=== PATIENT | male | born 1960 | race Caucasian/White ===

== ENCOUNTER → 2020-05-28 | Outpatient (CLI) | payer OTHER ==
--- NOTE | 2020-05-28 12:56 | MR ---
EXAMINATION TYPE: MR lumbar spine wo con DATE OF EXAM: 05/28/2020 COMPARISON: NONE HISTORY: Low back pain per order. Lower back pain for 28 years into right buttocks per patient. TECHNIQUE: Multiplanar, multisequence imaging of the lumbar spine is performed without IV contrast. FINDINGS: Survey images show dextroconvex scoliosis or curvature centered at L3 level. Sagittal image s of the lumbar spine show vertebral body heights to appear satisfactory. There is grade 1 retrolisth esis L3 on L4 and to lesser degree L4 and L5. Multilevel disc desiccation and disc space narrowing. D isc space narrowing fairly moderate throughout greatest at L3-L4 level. Heterogeneous Modic type II e ndplate changes with moderate anterior spurring L2-L3 and L3-L4 levels. The conus medullaris is norm al in position and signal ending mid L1 level. Axial images at T12-L1 level are within normal limits. Axial images at L1-L2 level show mild broad disc bulge minimally effacing the anterior thecal sac and mild facet arthropathy bilaterally. Axial images at L2-L3 level show moderate broad disc bulge and mild facet degenerative changes bilate rally. There is effacement of the anterior thecal sac. There is left foraminal disc protrusion compon ent causing mild left greater than right bilateral anterior inferior neural foraminal narrowing. Axial images at L3-L4 levels with spondylolisthesis with moderate to advanced broad disc bulge, there is right foraminal disc protrusion component effacing the right lateral recess axial image 13. There is some effacement of the anterior thecal sac extending to right of midline. There is mild right gre ater than left bilateral anterior inferior neural foraminal narrowing. Mild/moderate facet arthropath y bilaterally. Axial images at L4-L5 level show [id number] facet degenerative changes bilaterally. There is mi ld to moderate broad-based posterior disc protrusion. Spinal canal preserved. There is moderate left and mild to moderate right-sided neural foraminal narrowing at this level. Axial images at L5-S1 level shows moderate facet degenerative changes bilaterally. There is broad-bas ed posterior central disc protrusion without spinal canal is preserved. Mild right greater than left bilateral anterior inferior neural foraminal narrowing is present. The paraspinal muscle bulk is maintained. IMPRESSION: Multilevel spondylolisthesis and degenerative changes as detailed above. If outside x-ray becomes available for comparison an addendum may be issued.
== END | disposition home or self-care (01) ==
LOC: RADMRIMAIN 08:19
DX: M43.16 Spondylolisthesis, lumbar region (principal); M47.816 Spondylosis without myelopathy or radiculopathy, lumbar region
CPT/HCPCS: 72148

== ENCOUNTER 2021-02-20 08:14 | Inpatient (IN) | payer OTHER ==
[2021-02-20] MEDS ORDERED: SODIUM CHLORIDE 0.9% 1,000 ML IV STA (08:25)
[2021-02-20 09:44] LABS: ALT 22 U/L (4-49); AST 59 U/L (17-59); African American GFR (CKD) >90 (>60 ml/min/1.73 sqM); Albumin 2.9 g/dL (3.5-5.0); Alkaline Phosphatase 111 U/L (38-126); Amylase 46 U/L (30-110); Anion Gap 3 mmol/L; Blood Urea Nitrogen 4 mg/dL (9-20); Calcium 8.2 mg/dL (8.4-10.2); Carbon Dioxide 36 mmol/L (22-30); Chloride 96 mmol/L (98-107); Glucose 102 mg/dL (74-99); Lipase 74 U/L (23-300); Non-African American GFR(CKD) >90 (>60 ml/min/1.73 sqM); Sodium 135 mmol/L (137-145); Total Bilirubin 1.1 mg/dL (0.2-1.3); Total Protein 5.6 g/dL (6.3-8.2)
[2021-02-20 09:47] LABS: Basophils % (A) 1 %; Eosinophils # (A) 0.1 k/uL (0-0.7); Eosinophils % (A) 1 %; HCT 38.6 % (39.0-53.0); HGB 14.2 gm/dL (13.0-17.5); Hyperchromasia Slight; Lymphocytes # (A) 1.6 k/uL (1.0-4.8); Lymphocytes % (A) 26 %; MCH 39.1 pg (25.0-35.0); MCHC 36.9 g/dL (31.0-37.0); Macrocytosis Slight; Mean Platelet Volume 7.1; Monocytes # (A) 0.4 k/uL (0-1.0); Monocytes % (A) 6 %; Neutrophils # (A) 4.1 k/uL (1.3-7.7); Neutrophils % (A) 65 %; Platelet Count 256 k/uL (150-450); RBC 3.65 m/uL (4.30-5.90); RDW 12.9 % (11.5-15.5); WBC 6.3 k/uL (3.8-10.6)
--- NOTE | 2021-02-20 09:54 | XR ---
KUB HISTORY: Abdominal pain KUB submitted on 2 images, no comparisons There is a dextroscoliosis centered at the upper lumbar spine. Multilevel spondylosis is present. Kitty g bases are clear. No evidence of pneumoperitoneum or bowel obstruction. Possible phleboliths noted i n the pelvis. IMPRESSION: Nonspecific bowel gas pattern. Scoliosis and degenerative disc disease.
[2021-02-20 09:57] LABS: Potassium 2.6 mmol/L (3.5-5.1)
[2021-02-20] MEDS ORDERED: POTASSIUM CHLORIDE ER 20 MEQ TAB.ER PO STA ×2 (09:57→19:51)
[2021-02-20 10:18] LABS: Appearance,Urine Clear (Clear); Bilirubin,Urine Negative (Negative); Blood,Urine Negative (Negative); Color,Urine Yellow; Glucose,Urine (UA) Negative (Negative); Ketones,Urine Negative (Negative); Leukocyte Esterase,Urine Negative (Negative); Nitrite,Urine Negative (Negative); Protein,Urine Negative (Negative); Specific Gravity,Urine 1.013 (1.001-1.035)
--- NOTE | 2021-02-20 10:18 | ED ---
Recheck HPI - General Chief Complaint: Recheck/Abnormal Lab/Rx Stated Complaint: Abnormal Labs Time Seen by Provider: 02/20/21 08:25 Source: patient, family, RN notes reviewed Mode of arrival: ambulatory Limitations: no limitations - History of Present Illness Initial Comments: Patient is a 60-year-old male that presents to emergency department complaining of abnormal labs at last blood draw at the [facility]. He notes that he's also been having diarrhea on and off for the last 2 years with no change. He notes that his doctor told to take half a pneumonia In the morning. He notes that this has not helped. He notes that his labs showed a low potassium and he was told to come the emergency room. Patient denied any other issues or complaints. He was otherwise well-appearing. He denied chest pain short of breath headache nausea vomiting diarrhea constipation fever fatigue chills. - Related Data Allergies Allergy/AdvReac Type Severity Reaction Status Date / Time No Known Allergies Allergy Verified 02/20/21 08:21 Review of Systems ROS Statement: Those systems with pertinent positive or pertinent negative responses have been documented in the HPI. ROS Other: All systems not noted in ROS Statement are negative. Past Medical History Past Medical History: Musculoskeletal Disorder, Thyroid Disorder History of Any Multi-Drug Resistant Organisms: None Reported Past Surgical History: Appendectomy, Hernia Repair Past Psychological History: No Psychological Hx Reported Smoking Status: Current every day smoker Past Alcohol Use History: Daily Past Drug Use History: None Reported General Exam Limitations: no limitations General appearance: alert, in no apparent distress Head exam: Present: atraumatic, normocephalic, normal inspection Eye exam: Present: normal appearance, PERRL, EOMI. Absent: scleral icterus, con junctival injection, periorbital swelling ENT exam: Present: normal exam, mucous membranes moist Neck exam: Present: normal inspection Respiratory exam: Present: normal lung sounds bilaterally. Absent: respiratory distress, wheezes, rales, rhonchi, stridor Cardiovascular Exam: Present: regular rate, normal rhythm, normal heart sounds. Absent: systolic murmur, diastolic murmur, rubs, gallop, clicks GI/Abdominal exam: Present: soft, tenderness (bilateral lower abdomen.), normal bowel sounds. Absent: distended, guarding, rebound, rigid Extremities exam: Present: normal inspection, full ROM, normal capillary refill. Absent: tenderness, pedal edema, joint swelling, calf tenderness Neurological exam: Present: alert, oriented X3 Psychiatric exam: Present: normal affect, normal mood Skin exam: Present: warm, dry, intact, normal color. Absent: rash Course Vital Signs 02/20/21 02/20/21 02/20/21 08:15 09:30 10:00 Temperature 97.7 F Pulse Rate 64 58 L 65 Respiratory 18 22 16 Rate Blood Pressure 142/81 145/83 141/82 O2 Sat by Pulse 98 99 99 Oximetry Medical Decision Making - Medical Decision Making 60-year-old male with 3 year history of diarrhea and low potassium on recent blood work. Labs, 1 L normal saline, KUB, EKG, cargo service supervisor ordered. Labs: CBC unremarkable, CMP shows potassium of 2.6 chloride of 96 calcium of 8.2 and albumin of 2.9. KUB shows nonspecific bowel gas pattern. 40 mEq of potassium ordered. Patient has no previous labs or EKGs to compare to. Dr. Sethi was consulted and recommended patient be inpatient. Case discussed with Dr. Lemus, patient will be admitted. - Lab Data Result diagrams: 02/20/21 08:55 02/20/21 08:55 Lab Results 02/20/21 02/20/21 02/20/21 Range/Units 08:55 08:55 09:36 WBC 6.3 (3.8-10.6) k/uL RBC 3.65 L (4.30-5.90) m/uL Hgb 14.2 (13.0-17.5) gm/dL Hct 38.6 L (39.0-53.0) % MCV 106.0 H (80.0-100.0) fL MCH 39.1 H (25.0-35.0) pg MCHC 36.9 (31.0-37.0) g/dL RDW 12.9 (11.5-15.5) % Plt Count 256 (150-450) k/uL MPV 7.1 Neutrophils % 65 % Lymphocytes % 26 % Monocytes % 6 % Eosinophils % 1 % Basophils % 1 % Neutrophils # 4.1 (1.3-7.7) k/uL Lymphocytes # 1.6 (1.0-4.8) k/uL Monocytes # 0.4 (0-1.0) k/uL Eosinophils # 0.1 (0-0.7) k/uL Basophils # 0.0 (0-0.2) k/uL Hyperchromasia Slight Macrocytosis Slight Sodium 135 L (137-145) mmol/L Potassium 2.6 L* (3.5-5.1) mmol/L Chloride 96 L (98-107) mmol/L Carbon Dioxide 36 H (22-30) mmol/L Anion Gap 3 mmol/L BUN 4 L (9-20) mg/dL Creatinine 0.66 (0.66-1.25) mg/dL Est GFR (CKD-EPI)AfAm >90 (>60 ml/min/1.73 sqM) Est GFR (CKD-EPI)NonAf >90 (>60 ml/min/1.73 sqM) Glucose 102 H (74-99) mg/dL Calcium 8.2 L (8.4-10.2) mg/dL Total Bilirubin 1.1 (0.2-1.3) mg/dL AST 59 (17-59) U/L ALT 22 (4-49) U/L Alkaline Phosphatase 111 (38-126) U/L Total Protein 5.6 L (6.3-8.2) g/dL Albumin 2.9 L (3.5-5.0) g/dL Amylase 46 (30-110) U/L Lipase 74 (23-300) U/L Urine Color Yellow Urine Appearance Clear (Clear) Urine pH 6.0 (5.0-8.0) Ur Specific [place] 1.013 (1.001-1.035) Urine Protein Negative (Negative) Urine Glucose (UA) Negative (Negative) Urine Ketones Negative (Negative) Urine Blood Negative (Negative) Urine Nitrite Negative (Negative) Urine Bilirubin Negative (Negative) Urine Urobilinogen 2.0 (<2.0) mg/dL Ur Leukocyte Esterase Negative (Negative) - EKG Data -: EKG Interpreted by [place] EKG shows normal: sinus rhythm Rate: normal EKG Comments: Ventricular rate 61 bpm, MS interval 130 ms, QRS duration 92 ms, QTC 477 ms, PRT axes 73/74/55, sinus rhythm with premature atrial complexes, incomplete right bundle branch block, nonspecific ST and T-wave abnormality, abnormal ECG. - Radiology Data Radiology results: report reviewed, image reviewed KUB: Nonspecific bowel gas pattern. Scoliosis and degenerative disc disease. Disposition Clinical Impression: Hypokalemia, Diarrhea Disposition: ADMITTED IP TO THIS HOSP Condition: Stable Is patient prescribed a controlled substance at d/c from ED?: No Referrals: [facility],Clinic [Primary Care Provider] - 1-2 days Time of Disposition: 10:31
[2021-02-20] MEDS ORDERED: NALOXONE 0.4 MG/ML 1 ML VIAL IV PRN (10:32)
[2021-02-20] MEDS ORDERED: Potassium Replacement Protocol 1 EACH MISC MISCELLANE PRN (10:39)
[2021-02-20] MEDS ORDERED: Magnesium Replacement Protocol 1 EACH MISC MISCELLANE PRN (10:39)
[2021-02-20] MEDS ORDERED: IOPAMIDOL CONTRAST (ORAL USE) VIAL PO PRN (10:42)
--- NOTE | 2021-02-20 11:21 | P.HPIM ---
History of Present Illness This is a pleasant 60 years old male with past medical history of chronic diarrhea. He was sent from the [place] office for abnormal lab with hypokalemia. Patient went to the [place] hospital for testing for his thyroid blood test for a ro utine visit, he was found to have low potassium and call to come to emergency room. Patient has been complaining of from diarrhea for 2 years and is really bad slowly getting worse over the last year, currently he is going to 16-18 times per day, associated with lower abdominal pain about 6-8/10 in severity. Nonradiating. It felt like cramps. No nausea vomiting. He has been evaluated by GI service over the last 2 years. He had a colonoscopy about 2 years ago. He denies chest pain or dyspnea. No headache or weakness. At baseline he works using a cane. He has family history of pancolitis and his daughter who is: Has to be taken out per patient. He is a smoker about 1 pack per day, patient is counseled and does not want to quit agrees to nicotine patch while in house. He drinks about 6-8 red apple cider of alcohol every day. No illicit drugs. Patient is hemodynamically stable. Afebrile. Labs showing unremarkable CBC with normal WBC at 6.3. Sodium 135, potassium 2.6. Creatinine normal at 0.6. Liver enzymes not elevated. Bilirubin is normal. Amylase and lipase are normal. Urine analysis is not suspicious of infection. KUB nonspecific bowel gas pattern. Scoliosis and degenerative disc disease Emergency room received KCl 40 mEq by mouth 1 and normal saline with 30 mL/h GI team were consulted from emergency room. Review of Systems CONSTITUTIONAL: No fever, no malaise, no fatigue. HEENT: No recent visual problems or hearing problems. Denied any sore throat. CARDIOVASCULAR: No orthopnea, PND, no palpitations, no syncope. PULMONARY: No shortness of breath, no cough, no hemoptysis. GASTROINTESTINAL: No diarrhea, no nausea, no vomiting, no abdominal pain. Normoactive bowel sounds. NEUROLOGICAL: No headaches, no weakness, no numbness. HEMATOLOGICAL: Denies any bleeding or petechiae. GENITOURINARY: Denies any burning micturition, frequency, or urgency. MUSCULOSKELETAL/RHEUMATOLOGICAL: Denies any joint pain, swelling, or any muscle pain. ENDOCRINE: Denies any polyuria or polydipsia. Past Medical History Past Medical History: Musculoskeletal Disorder, Thyroid Disorder History of Any Multi-Drug Resistant Organisms: None Reported Past Surgical History: Appendectomy, Hernia Repair Past Psychological History: No Psychological Hx Reported Smoking Status: Current every day smoker Past Alcohol Use History: Daily Past Drug Use History: None Reported Medications and Allergies Home Medications Medication Instructions Recorded Confirmed Type Albuterol Sulfate [Proair Hfa] 1 - 2 puff INHALATION RT-Q6H PRN 02/20/21 02/20/21 History Budesonide-Formot 160-4.5 Mcg 2 puff INHALATION RT-BID 02/20/21 02/20/21 History [Symbicort 160-4.5 Mcg Inhaler] Cetirizine HCl [Zyrtec] 10 mg PO DAILY 02/20/21 02/20/21 History Cyanocobalamin [Vitamin B-12] 500 mcg PO DAILY 02/20/21 02/20/21 History Cyclobenzaprine [Flexeril] 10 mg PO BID PRN 02/20/21 02/20/21 History Folic Acid 1 mg PO DAILY 02/20/21 02/20/21 History HYDROcodone/APAP 5-325MG [Elliott 1 tab PO HS PRN 02/20/21 02/20/21 History 5-325] Loperamide HCl [Imodium A-D] 2 mg PO QID PRN 02/20/21 02/20/21 History Montelukast [Singulair] 10 mg PO DAILY 02/20/21 02/20/21 History Naproxen 375 mg PO BID 02/20/21 02/20/21 History Potassium Gluconate [Potassium 99 mg PO DAILY 02/20/21 02/20/21 History Gluconate ER] Toradol 30mg/Ml 30 mg IM DAILY PRN 02/20/21 02/20/21 History Allergies Allergy/AdvReac Type Severity Reaction Status Date / Time No Known Allergies Allergy Verified 02/20/21 10:59 Physical Exam Vitals: Vital Signs Temp Pulse Resp BP Pulse Ox 02/20/21 10:00 65 16 141/82 99 02/20/21 09:30 58 L 22 145/83 99 02/20/21 08:15 97.7 F 64 18 142/81 98 Intake and Output 02/19/21 02/20/21 02/20/21 22:59 06:59 14:59 Other: Weight 71.668 kg GENERAL: The patient is alert and oriented x3, not in any acute distress. Well developed, well nourished. HEENT: Pupils are round and equally reacting to light. EOMI. No scleral icterus. No conjunctival pallor. Normocephalic, atraumatic. No pharyngeal erythema. No thyromegaly. CARDIOVASCULAR: S1 and S2 present. No murmurs, rubs, or gallops. PULMONARY: Chest is clear to auscultation, no wheezing or crackles. -ABDOMEN: Soft, lower abdominal tenderness, no guarding or rebound tenderness, nondistended, normoactive bowel sounds. No palpable organomegaly. MUSCULOSKELETAL: No joint swelling or deformity. EXTREMITIES: No cyanosis, clubbing, or pedal edema. NEUROLOGICAL: Gross neurological examination did not reveal any focal deficits. SKIN: No rashes. No petechiae Results CBC & Chem 7: 02/20/21 08:55 02/20/21 08:55 Labs: Abnormal Lab Results - Last 24 Hours (Table) 02/20/21 02/20/21 Range/Units 08:55 08:55 RBC 3.65 L (4.30-5.90) m/uL Hct 38.6 L (39.0-53.0) % MCV 106.0 H (80.0-100.0) fL MCH 39.1 H (25.0-35.0) pg Sodium 135 L (137-145) mmol/L Potassium 2.6 L* (3.5-5.1) mmol/L Chloride 96 L (98-107) mmol/L Carbon Dioxide 36 H (22-30) mmol/L BUN 4 L (9-20) mg/dL Glucose 102 H (74-99) mg/dL Calcium 8.2 L (8.4-10.2) mg/dL Total Protein 5.6 L (6.3-8.2) g/dL Albumin 2.9 L (3.5-5.0) g/dL Assessment and Plan Assessment: Hypokalemia Worsening acute on chronic diarrhea Dehydration secondary to above nicotine dependence Alcohol abuse at-risk of local withdrawal Family history of pancolitis Plan: This is a pleasant 6 years old male who presents with hypokalemia and acute on chronic diarrhea Replacement potassium per protocol. Check and a magnesium per protocol. Continue with IV hydration CT of the abdomen and pelvis risk of ALLERGY to nephrotoxicity are explained in detail the patient and and they verbalized understanding and acceptance of the fifth With IV contrast. We'll check for stool C. diff, Giardia antigen, stool culture, fecal c alprotectin. Also we'll check for stool elastase. Check TSH tocalcitonin, C- reactive protein and ESR GI team were consulted from emergency room. But there is no GI coverage during this week and next week in this facility. If no improvement or worsening consider transfer for higher level of care. Continue with CIWA protocol and nicotine patch Labs and medication were reviewed.. Continue same treatment. Continue with symptomatic treatment. Resume home medication. Monitor lytes and vitals. DVT and GI prophylaxis. Further recommendations depends on the clinical course of the patient DVT prophylaxis: Subcutaneous heparin GI Prophylaxis: Pepcid PT/OT: Pending Prognosis is guarded
[2021-02-20] MEDS: SODIUM CHLORIDE 0.9% 1,000 ML IV SCH ×3 (12:40→22:22)
[2021-02-20 12:47] LABS: C Reactive Protein <0.5 mg/dL (<1.0); Magnesium 2.2 mg/dL (1.6-2.3)
[2021-02-20] MEDS ORDERED: LORazepam 2 MG/ML INJ IV PRN ×3 (13:52)
[2021-02-20] MEDS ORDERED: THIAMINE 100 MG/ML 2 ML VIAL IM STA (13:52)
--- NOTE | 2021-02-20 14:00 | CT ---
EXAMINATION TYPE: CT abdomen pelvis w con DATE OF EXAM: 02/20/2021 COMPARISON: None HISTORY: Abnormal labs CT DLP: 973 mGycm CONTRAST: CT scan of the abdomen and pelvis is performed with Oral Contrast and with IV Contrast, patient injec franko with 100 mL of Isovue 300. FINDINGS: LUNG BASES-: No visible nodule. No infiltrate. LIVER/GB: There is mild stranding noted about the gallbladder. Correlate for a degree of cholecysti tis. No obvious gallstones evident. No space occupying hepatic lesion. Biliary tree is of normal claudia iber. PANCREAS: No inflammation. No distinct mass. SPLEEN: No splenic enlargement. No lesion seen. ADRENALS: No nodule. No thickening. KIDNEYS/BLADDER: No hydronephrosis. No nephrolithiasis. No distinct renal mass. Urinary bladder g rossly unremarkable. BOWEL: Mild wall thickening involving the descending colon and sigmoid colon may reflect nonspecific colitis. Correlate clinically. Nonvisualization of the appendix. GENITAL ORGANS: No gross abnormality. LYMPH NODES: No greater than 1cm abdominal or pelvic lymph nodes are appreciated. AORTA: No significant abnormality. OSSEOUS STRUCTURES: No significant abnormality is seen. OTHER: No significant additional abnormality is seen. IMPRESSION: 1. Mild wall thickening involving the descending colon and sigmoid colon may reflect nonspecific coli tis. Correlate clinically. 2. Subtle stranding about the gallbladder could reflect a degree of cholecystitis. Correlate clinical ly.
[2021-02-20] MEDS: THIAMINE 100 MG TAB PO SCH (18:13)
[2021-02-20] MEDS ORDERED: HYDROmorphone 1 MG/ML 1 ML SYRINGE IVP PRN (19:54)
[2021-02-20] MEDS: CHOLESTYRAMINE (WITH SUGAR) 4 GM PACKET PO SCH (21:51)
[2021-02-21 07:06] LABS: African American GFR (CKD) >90 (>60 ml/min/1.73 sqM); Anion Gap 4 mmol/L; Blood Urea Nitrogen 3 mg/dL (9-20); Carbon Dioxide 31 mmol/L (22-30); Chloride 102 mmol/L (98-107); Glucose 98 mg/dL (74-99); Magnesium 2.1 mg/dL (1.6-2.3); Non-African American GFR(CKD) >90 (>60 ml/min/1.73 sqM); Potassium 2.9 mmol/L (3.5-5.1); Sodium 137 mmol/L (137-145)
[2021-02-21] MEDS: SODIUM CHLORIDE 0.9% 1,000 ML IV SCH ×2 (08:30→18:18)
[2021-02-21] MEDS: NICOTINE 21MG/24HR PATCH TRANSDERM SCH (08:57)
[2021-02-21] MEDS: THIAMINE 100 MG TAB PO SCH ×2 (08:59→17:32)
[2021-02-21] MEDS: CHOLESTYRAMINE (WITH SUGAR) 4 GM PACKET PO SCH ×2 (09:10→17:32)
[2021-02-21] MEDS: POTASSIUM CHLORIDE ER 20 MEQ TAB.ER PO SCH ×5 (10:06→22:02)
[2021-02-21] MEDS ORDERED: HYDROcodone/APAP 5-325MG 1 EACH TAB PO PRN (10:09)
--- NOTE | 2021-02-21 10:29 | US ---
EXAMINATION TYPE: US liver DATE OF EXAM: 02/21/2021 COMPARISON: CT 02/20/2021 CLINICAL HISTORY: abd pain and diarrhea . Thickened gallbladder wall seen on CT EXAM MEASUREMENTS: Liver Length: 14.9 cm Gallbladder Wall: 0.9 cm CBD: 0.4 cm Right Kidney: 10.4 x 5.6 x 5.3 cm Pancreas: hyperechoic, some limitations in visualization Liver: attenuated posteriorly and hyperechoic to right renal cortex suggesting fatty liver Gallbladder: abnormally thickened wall; possible phrygian cap vs. hypoechoic fundal mass Evidence for sonographic Pérez's sign: no CBD: wnl Right Kidney: No hydronephrosis or masses seen IMPRESSION: Findings consistent with hepatic steatosis as noted on CT, contracted gallbladder, consid er chronic cholecystitis, limited exam.
--- NOTE | 2021-02-21 14:12 | P.PN ---
Subjective This is a pleasant 60 years old male with past medical history of chronic diarrhea. [place] was sent [place] the [place] office for abnormal lab with hypokalemia. Patient went [place] the [place] hospital for testing for his thyroid blood test for a routine visit, he was found to have low potassium and call to come to emergency room. Patient has been complaining of from diarrhea for 2 years and is really bad slowly getting worse over the last year, currently he is going to 16-18 times per day, associated with lower abdominal pain about 6-8/10 in severity. Nonradiating. It felt like cramps. No nausea vomiting. He has been evaluated by GI service over the last 2 years. He had a colonoscopy about 2 years ago. He denies chest pain or dyspnea. No headache or weakness. At baseline he works using a cane. He has family history of pancolitis and his daughter who is: Has to be taken out per patient. He is a smoker about 1 pack per day, patient is counseled and does not want to quit agrees to nicotine patch while in house. He drinks about 6-[address] richard of alcohol every day. No illicit drugs. Patient is hemodynamically stable. Afebrile. Labs showing unremarkable CBC with normal WBC at 6.3. Sodium 135, potassium 2.6. Creatinine normal at 0.6. Liver enzymes not elevated. Bilirubin is normal. Amylase and lipase are normal. Urine analysis is not suspicious of infection. KUB nonspecific bowel gas pattern. Scoliosis and degenerative disc disease Emergency room received KCl 40 mEq by mouth 1 and normal saline with 30 mL/h GI team were consulted from emergency room. 02/21/2021 Patient still with diarrhea, he had 4-5 loose bowel movement last night. He has mild pain and tenderness in the left lower quadrant. He tolerates diet. No vomiting. No right upper quadrant pain or tenderness. CT of the abdomen showing possible descending and sigmoid colitis and liver ultrasound showing a contracted gallbladder suspicious for chronic c holecystitis. Vital signs stable, afebrile. Potassium 2.9, magnesium normal. TSH is normal C. diff is negative, Giardia antigen is negative. C-reactive protein is negative less than 0.5. Stool culture and calprotecting is pending. Stool elastase is is pending Patient still on IV hydration and C[facility] protocol for his alcohol abuse and thiamine. Also he is on cholestyramine and Olden was added today. GI team were consulted from emergency room but there is no GI service at this facility this week or next week. Surgery team were consulted. Physical therapy recommended home upon discharge Objective - Vital Signs Vital signs: Vital Signs Temp 98 F 02/21/21 12:26 Pulse 53 L 02/21/21 12:26 Resp 17 02/21/21 12:26 BP 130/79 02/21/21 12:26 Pulse Ox 98 02/21/21 12:26 Intake & Output 02/20/21 02/21/21 02/21/21 18:59 06:59 18:59 Intake Total 1530 Balance 1530 Weight 71.668 kg Intake: Intake, IV Titration 1430 Amount Sodium Chloride 0.9% 1, 1430 000 ml @ 130 mls/hr IV . Q7H42M [facility] Rx#:[id number] Oral 100 Other: Voiding Method Toilet Toilet # Voids 4 # Bowel Movements 4 - Exam GENERAL: The patient is alert and oriented x3, not in any acute distress. Well developed, well nourished. HEENT: Pupils are round and equally reacting to light. EOMI. No scleral icterus. No conjunctival pallor. Normocephalic, atraumatic. No pharyngeal erythema. No thyromegaly. CARDIOVASCULAR: S1 and S2 present. No murmurs, rubs, or gallops. PULMONARY: Chest is clear to auscultation, no wheezing or crackles. -ABDOMEN: Soft, mild LLQ tenderness, nondistended, normoactive bowel sounds. No palpable organomegaly. MUSCULOSKELETAL: No joint swelling or deformity. EXTREMITIES: No cyanosis, clubbing, or pedal edema. NEUROLOGICAL: Gross neurological examination did not reveal any focal deficits. SKIN: No rashes. no petechiae. - Labs CBC & Chem 7: 02/20/21 08:55 02/21/21 06:37 Labs: Abnormal Lab Results - Last 24 Hours (Table) 02/21/21 Range/Units 06:37 Potassium 2.9 L (3.5-5.1) mmol/L Carbon Dioxide 31 H (22-30) mmol/L BUN 3 L (9-20) mg/dL Calcium 8.0 L (8.4-10.2) mg/dL Microbiology - Last 24 Hours (Table) 10/20/21 11:26 Stool Culture - Preliminary Stool Assessment and Plan Assessment: Hypokalemia Worsening acute on chronic diarrhea Dehydration secondary to above nicotine dependence Alcohol abuse at-risk of local withdrawal Family history of pancolitis Plan: This is a pleasant 6 years old male who presents with hypokalemia and acute on chronic diarrhea Replacement potassium per protocol. Check and a magnesium per protocol. Continue with IV hydration Check TSH tocalcitonin, C-reactive protein and ESR GI team were consulted from emergency room. But there is no GI coverage during this week and next week in this facility. If no improvement or worsening consider transfer for higher level of care. Continue with CIWA protocol and nicotine patch Labs and medication were reviewed.. Continue same treatment. Continue with symptomatic treatment. Resume home medication. Monitor lytes and vitals. DVT and GI prophylaxis. Further recommendations depends on the clinical course of the patient DVT prophylaxis: Subcutaneous heparin GI Prophylaxis: Pepcid PT/OT: Pending Prognosis is guarded
[2021-02-21] MEDS ORDERED: MAGNESIUM CITRATE 296 ML BOTTLE PO ONE (18:03)
--- NOTE | 2021-02-21 18:12 | P.GSCN ---
History of Present Illness Consult date: 02/21/21 Reason for Consult: Diarrhea, hypokalemia History of present illness: The patient is a 60-year-old man who was sent to the ER with severe hypokalemia. The patient has been having issues with diarrhea for about the last 2 years. He gets crampy abdominal pain associated with diarrhea up to 18 times per day. This is affected his daily routine. He is afraid to go anywhere because of the diarrhea. He has had a colonoscopy in the past which she reports as "normal" he did not tell them at that time he was having this severe diarrhea. There is a family history of some sort of colitis and his daughter. She has had a colon resection in the past. He will have some blood in the stools and mucus. Denies nausea or vomiting. Admits to weight loss. His weight is gone from 195 to 140s Past Medical History Past Medical History: COPD, GI Bleed, Musculoskeletal Disorder, Thyroid Disorder Additional Past Medical History / Comment(s): L1-S1 herniated/degenerated History of Any Multi-Drug Resistant Organisms: None Reported Past Surgical History: Appendectomy, Hernia Repair Past Anesthesia/Blood Transfusion Reactions: No Reported Reaction Past Psychological History: No Psychological Hx Reported Smoking Status: Current every day smoker Past Alcohol Use History: Daily Additional Past Alcohol Use History / Comment(s): 8 can red daily Past Drug Use History: None Reported - Past Family History Father Family Medical History: Cancer Medications and Allergies Home Medications Medication Instructions Recorded Confirmed Type Albuterol Sulfate [Proair Hfa] 1 - 2 puff INHALATION RT-Q6H PRN 02/20/21 02/20/21 History Budesonide-Formot 160-4.5 Mcg 2 puff INHALATION RT-BID 02/20/21 02/20/21 History [Symbicort 160-4.5 Mcg Inhaler] Cetirizine HCl [Zyrtec] 10 mg PO DAILY 02/20/21 02/20/21 History Cyanocobalamin [Vitamin B-12] 500 mcg PO DAILY 02/20/21 02/20/21 History Cyclobenzaprine [Flexeril] 10 mg PO BID PRN 02/20/21 02/20/21 History Folic Acid 1 mg PO DAILY 02/20/21 02/20/21 History HYDROcodone/APAP 5-325MG [[place] 1 tab PO HS PRN 02/20/21 02/20/21 History 5-325] Loperamide HCl [Imodium A-D] 2 mg PO QID PRN 02/20/21 02/20/21 History Montelukast [Singulair] 10 mg PO DAILY 02/20/21 02/20/21 History Naproxen 375 mg PO BID 02/20/21 02/20/21 History Potassium Gluconate [Potassium 99 mg PO DAILY 02/20/21 02/20/21 History Gluconate ER] Toradol 30mg/Ml 30 mg IM DAILY PRN 02/20/21 02/20/21 History Levothyroxine Sodium [Synthroid] 112 mcg PO DAILY 02/21/21 02/21/21 History Allergies Allergy/AdvReac Type Severity Reaction Status Date / Time No Known Allergies Allergy Verified 02/20/21 10:59 Surgical - Exam Osteopathic Statement: *. No significant issues noted on an osteopathic structural exam other than those noted in the History and Physical/Consult. Vital Signs Temp Pulse Resp BP Pulse Ox 97.7 F 64 18 142/81 98 02/20/21 08:15 02/20/21 08:15 02/20/21 08:15 02/20/21 08:15 02/20/21 08:15 - General no distress - Eyes normal ocular movement - Respiratory normal respiratory effort, clear to auscultation - Cardiovascular Rhythm: regular - Abdomen Abdomen: soft, tender (Mild tenderness left lower quadrant), bowel sounds, no guarding, no rigid, no rebound, no distended Results - Labs 02/20/21 08:55 02/21/21 16:51 Abnormal Lab Results - Last 24 Hours (Table) 02/21/21 Range/Units 06:37 Potassium 2.9 L (3.5-5.1) mmol/L Carbon Dioxide 31 H (22-30) mmol/L BUN 3 L (9-20) mg/dL Calcium 8.0 L (8.4-10.2) mg/dL Microbiology - Last 24 Hours (Table) 02/20/21 11:26 Stool Culture - Preliminary Stool Diabetes panel 02/21/21 02/21/21 Range/Units 06:37 16:51 Sodium 137 (137-145) mmol/L Potassium 2.9 L 3.5 (3.5-5.1) mmol/L Chloride 102 (98-107) mmol/L Carbon Dioxide 31 H (22-30) mmol/L BUN 3 L (9-20) mg/dL Creatinine 0.67 (0.66-1.25) mg/dL Glucose 98 (74-99) mg/dL Calcium 8.0 L (8.4-10.2) mg/dL Calcium panel 02/21/21 Range/Units 06:37 Calcium 8.0 L (8.4-10.2) mg/dL Pituitary panel 02/21/21 02/21/21 Range/Units 06:37 16:51 Sodium 137 (137-145) mmol/L Potassium 2.9 L 3.5 (3.5-5.1) mmol/L Chloride 102 (98-107) mmol/L Carbon Dioxide 31 H (22-30) mmol/L BUN 3 L (9-20) mg/dL Creatinine 0.67 (0.66-1.25) mg/dL Glucose 98 (74-99) mg/dL Calcium 8.0 L (8.4-10.2) mg/dL Adrenal panel 02/21/21 02/21/21 Range/Units 06:37 16:51 Sodium 137 (137-145) mmol/L Potassium 2.9 L 3.5 (3.5-5.1) mmol/L Chloride 102 (98-107) mmol/L Carbon Dioxide 31 H (22-30) mmol/L BUN 3 L (9-20) mg/dL Creatinine 0.67 (0.66-1.25) mg/dL Glucose 98 (74-99) mg/dL Calcium 8.0 L (8.4-10.2) mg/dL - Imaging CT scan - abdomen: report reviewed Assessment and Plan (1) Family history of inflammatory bowel disease Current Visit: Yes Status: Acute Code(s): Z83.79 - FAMILY HISTORY OF OTHER DISEASES OF THE DIGESTIVE SYSTEM SNOMED Code(s): 886554393 (2) Diarrhea Current Visit: Yes Status: Acute Code(s): R19.7 - DIARRHEA, UNSPECIFIED SNOMED Code(s): 68383083 (3) Hypokalemia Current Visit: Yes Status: Acute Code(s): E87.6 - HYPOKALEMIA SNOMED Code(s): 14236309 Plan: The hypokalemia is likely related to the severe diarrhea. CT shows possible inflammatory change in the colon. I recommended a colonoscopy with biopsies. The procedure, risks and complications were discussed. Questions were encouraged and answered. The prep restarted and we'll tentatively do this for him tomorrow afternoon.
[2021-02-22] MEDS: SODIUM CHLORIDE 0.9% 1,000 ML IV SCH ×3 (04:00→16:18)
[2021-02-22] MEDS ORDERED: MAGNESIUM CITRATE 296 ML BOTTLE PO ONE (07:00)
[2021-02-22] MEDS: THIAMINE 100 MG TAB PO SCH ×2 (07:13→18:13)
[2021-02-22 07:15] LABS: African American GFR (CKD) >90 (>60 ml/min/1.73 sqM); Anion Gap 1 mmol/L; Blood Urea Nitrogen <2 mg/dL (9-20); Carbon Dioxide 28 mmol/L (22-30); Chloride 107 mmol/L (98-107); Glucose 90 mg/dL (74-99); Magnesium 2.2 mg/dL (1.6-2.3); Non-African American GFR(CKD) >90 (>60 ml/min/1.73 sqM); Potassium 3.8 mmol/L (3.5-5.1); Sodium 136 mmol/L (137-145)
[2021-02-22] MEDS: NICOTINE 21MG/24HR PATCH TRANSDERM SCH (07:41)
[2021-02-22] MEDS: CHOLESTYRAMINE (WITH SUGAR) 4 GM PACKET PO SCH ×2 (10:43→18:13)
[2021-02-22] MEDS ORDERED: PROPOFOL 10 MG/ML 20 ML VIAL IV ONE (13:48)
[2021-02-22] MEDS ORDERED: SODIUM CHLORIDE 0.9% 1,000 ML IV ONE ×2 (13:58)
--- NOTE | 2021-02-22 14:04 | P.PN ---
Subjective This is a pleasant 60 years old male with past medical history of chronic diarrhea. He was sent from the [place] office for abnormal lab with hypokalemia. Patient went to the [place] hospital for testing for his thyroid blood test for a routine visit, he was found to have low potassium and call to come to emergency room. Patient has been complaining of from diarrhea for 2 years and is really bad slowly getting worse over the last year, currently he is going to 16-18 times per day, associated with lower abdominal pain about 6-8/10 in severity. Nonradiating. It felt like cramps. No nausea vomiting. He has been evaluated by GI service over the last 2 years. He had a colonoscopy about 2 years ago. He denies chest pain or dyspnea. No headache or weakness. At baseline he works using a cane. He has family history of pancolitis and his daughter who is: Has to be taken out per patient. He is a smoker about 1 pack per day, patient is counseled and does not want to quit agrees to nicotine patch while in house. He drinks about 6-[address] of alcohol every day. No illicit drugs. Patient is hemodynamically stable. Afebrile. Labs showing unremarkable CBC with normal WBC at 6.3. Sodium 135, potassium 2.6. Creatinine normal at 0.6. Liver enzymes not elevated. Bilirubin is normal. Amylase and lipase are normal. Urine analysis is not suspicious of infection. KUB nonspecific bowel gas pattern. Scoliosis and degenerative disc disease Emergency room received KCl 40 mEq by mouth 1 and normal saline with 30 mL/h GI team were consulted from emergency room. 02/21/2021 Patient still with diarrhea, he had 4-5 loose bowel movement last night. He has mild pain and tenderness in the left lower quadrant. He tolerates diet. No vomiting. No right upper quadrant pain or tenderness. CT of the abdomen showing possible descending and sigmoid colitis and liver ultrasound showing a contracted gallbladder suspicious for chronic c holecystitis. Vital signs stable, afebrile. Potassium 2.9, magnesium normal. TSH is normal C. diff is negative, Giardia antigen is negative. C-reactive protein is negative less than 0.5. Stool culture and calprotecting is pending. Stool elastase is is pending Patient still on IV hydration and CIMO protocol for his alcohol abuse and thiamine. Also he is on cholestyramine and Blanco was added today. GI team were consulted from emergency room but there is no GI service at this facility this week or next week. Surgery team were consulted. Physical therapy recommended home upon discharge 02/22/2021 Patient is going for colonoscopy today and he is undergoing bowel preparation now. Significant abdominal pain today. Some gentle hydration. Remains on CIWA protocol. Potassium is back to normal at 3.8. No antibiotics so far. Protonix calcitonin is normal at 0.04. No fever or leukocytosis. An appointment made for him with his PCP on 02/28, patient will be instructed to follow up with PCP in one week after discharge and he agrees. Objective - Vital Signs Vital signs: Vital Signs Temp 98.0 F 02/22/21 12:54 Pulse 48 L 02/22/21 12:54 Resp 16 02/22/21 12:54 BP 157/82 02/22/21 12:54 Pulse Ox 95 02/22/21 12:54 Intake & Output 02/21/21 02/22/21 02/22/21 18:59 06:59 18:59 Intake Total 1560 1960 Balance 1560 1960 Intake: Intake, IV Titration 1560 1560 Amount Sodium Chloride 0.9% 1, 1560 1560 000 ml @ 130 mls/hr IV . Q7H42M [facility] Rx#:[id number] Oral 400 Other: Voiding Method Toilet Toilet # Voids 3 # Bowel Movements 6 - Exam GENERAL: The patient is alert and oriented x3, not in any acute distress. Well developed, well nourished. HEENT: Pupils are round and equally reacting to light. EOMI. No scleral icterus. No conjunctival pallor. Normocephalic, atraumatic. No pharyngeal erythema. No thyromegaly. CARDIOVASCULAR: S1 and S2 present. No murmurs, rubs, or gallops. PULMONARY: Chest is clear to auscultation, no wheezing or crackles. -ABDOMEN: Soft, mild LLQ tenderness, nondistended, normoactive bowel sounds. No palpable organomegaly. MUSCULOSKELETAL: No joint swelling or deformity. EXTREMITIES: No cyanosis, clubbing, or pedal edema. NEUROLOGICAL: Gross neurological examination did not reveal any focal deficits. SKIN: No rashes. no petechiae. - Labs CBC & Chem 7: 02/20/21 08:55 02/22/21 06:18 Labs: Abnormal Lab Results - Last 24 Hours (Table) 02/22/21 Range/Units 06:18 Sodium 136 L (137-145) mmol/L BUN <2 L (9-20) mg/dL Creatinine 0.61 L (0.66-1.25) mg/dL Calcium 8.0 L (8.4-10.2) mg/dL Assessment and Plan Assessment: Left descending and sigmoid colitis Hypokalemia, Improved Worsening acute on chronic diarrhea Dehydration secondary to above, improved nicotine dependence Alcohol abuse at-risk of local withdrawal Family history of pancolitis Plan: This is a pleasant 6 years old male who presents with hypokalemia and acute on chronic diarrhea Replacement potassium per protocol. Continue with IV hydration colonoscopy by surgery team Follow-up stool culture No GI covered to the hospital Continue with CIWA protocol and nicotine patch Labs and medication were reviewed.. Continue same treatment. Continue with symptomatic treatment. Resume home medication. Monitor lytes and vitals. DVT and GI prophylaxis. Further recommendations depends on the clinical course of the patient DVT prophylaxis: Subcutaneous heparin GI Prophylaxis: Pepcid Prognosis is guarded
--- NOTE | 2021-02-22 14:14 | P.OP ---
Date of Procedure: 02/22/21 Preoperative Diagnosis: Diarrhea, hypokalemia Postoperative Diagnosis: Diarrhea, hypokalemia Procedure(s) Performed: Colonoscopy with biopsy Anesthesia: MAC Surgeon: Safia Eden Pathology: other (Terminal ileum, random colon) Condition: stable Disposition: floor Indications for Procedure: The patient presented with severe hypokalemia and a history of persistent diarrhea 12-20 times per day Description of Procedure: The patient is taken to the endoscopy suite where colonoscope is passed per rectum to the terminal ileum. He has a good prep. The villous pattern of the terminal ileum may be a little blunted but there is no raquel ulceration or significant erythema. Cold biopsies were obtained in the terminal ileum. The colon was without evidence of polyp, mass lesion, ulcer or other mucosal abnormality. No evidence of inflammatory change where the CT showed bowel wall thickening. The mucosa may have been slightly hyperemic but grossly appeared normal. Multiple colonic biopsies were obtained to rule out microscopic colitis. He tolerated the procedure without difficulty and is taken back to his room in satisfactory condition. We'll start him on some scheduled Lomotil pending results of the biopsies.
[2021-02-22] MEDS: DIPHENOX-ATROP 2.5-0.025 MG 1 EACH TAB PO SCH (19:40)
[2021-02-23] MEDS: SODIUM CHLORIDE 0.9% 1,000 ML IV SCH ×3 (03:49→17:13)
[2021-02-23] MEDS: THIAMINE 100 MG TAB PO SCH ×2 (08:58→17:13)
[2021-02-23] MEDS: CHOLESTYRAMINE (WITH SUGAR) 4 GM PACKET PO SCH ×2 (09:02→17:33)
[2021-02-23] MEDS: NICOTINE 21MG/24HR PATCH TRANSDERM SCH (09:02)
[2021-02-23] MEDS: DIPHENOX-ATROP 2.5-0.025 MG 1 EACH TAB PO SCH ×2 (09:02→19:02)
[2021-02-23 09:33] LABS: African American GFR (CKD) 124.5 (60.0-200.0); Anion Gap 8.8 mmol/L (4.00-12.00); BUN/Creat Ratio 3.74 Ratio (12.00-20.00); Blood Urea Nitrogen 2.3 mg/dL (9.0-27.0); Calcium 7.9 mg/dL (8.7-10.3); Carbon Dioxide 23.1 mmol/L (21.6-31.8); Magnesium 2.2 mg/dL (1.5-2.4); Non-African American GFR(CKD) 107.4 (60.0-200.0); Potassium 3.4 mmol/L (3.5-5.5)
[2021-02-23] MEDS: POTASSIUM CHLORIDE ER 20 MEQ TAB.ER PO SCH ×2 (10:17→12:14)
[2021-02-23] MEDS ORDERED: ALBUTEROL NEBULIZED 2.5 MG/3 ML INHALATION PRN (22:09)
[2021-02-23] MEDS ORDERED: CYCLOBENZAPRINE 10 MG TAB PO PRN (22:09)
--- NOTE | 2021-02-23 22:09 | P.PN ---
Subjective This is a pleasant 60 years old male with past medical history of chronic diarrhea. He was sent from the [place] office for abnormal lab with hypokalemia. Patient went to the [place] hospital for testing for his thyroid blood test for a routine visit, he was found to have low potassium and call to come to emergency room. Patient has been complaining of from diarrhea for 2 years and is really bad slowly getting worse over the last year, currently he is going to 16-18 times per day, associated with lower abdominal pain about 6-8/10 in severity. Nonradiating. It felt like cramps. No nausea vomiting. He has been evaluated by GI service over the last 2 years. He had a colonoscopy about 2 years ago. He denies chest pain or dyspnea. No headache or weakness. At baseline he works using a cane. He has family history of pancolitis and his daughter who is: Has to be taken out per patient. He is a smoker about 1 pack per day, patient is counseled and does not want to quit agrees to nicotine patch while in house. He drinks about 6-[address] of alcohol every day. No illicit drugs. Patient is hemodynamically stable. Afebrile. Labs showing unremarkable CBC with normal WBC at 6.3. Sodium 135, potassium 2.6. Creatinine normal at 0.6. Liver enzymes not elevated. Bilirubin is normal. Amylase and lipase are normal. Urine analysis is not suspicious of infection. KUB nonspecific bowel gas pattern. Scoliosis and degenerative disc disease Emergency room received KCl 40 mEq by mouth 1 and normal saline with 30 mL/h GI team were consulted from emergency room. 02/21/2021 Patient still with diarrhea, he had 4-5 loose bowel movement last night. He has mild pain and tenderness in the left lower quadrant. He tolerates diet. No vomiting. No right upper quadrant pain or tenderness. CT of the abdomen showing possible descending and sigmoid colitis and liver ultrasound showing a contracted gallbladder suspicious for chronic c holecystitis. Vital signs stable, afebrile. Potassium 2.9, magnesium normal. TSH is normal C. diff is negative, Giardia antigen is negative. C-reactive protein is negative less than 0.5. Stool culture and calprotecting is pending. Stool elastase is is pending Patient still on IV hydration and CIRI protocol for his alcohol abuse and thiamine. Also he is on cholestyramine and Gravette was added today. GI team were consulted from emergency room but there is no GI service at this facility this week or next week. Surgery team were consulted. Physical therapy recommended home upon discharge 02/22/2021 Patient is going for colonoscopy today and he is undergoing bowel preparation now. Significant abdominal pain today. Some gentle hydration. Remains on CIWA protocol. Potassium is back to normal at 3.8. No antibiotics so far. Protonix calcitonin is normal at 0.04. No fever or leukocytosis. An appointment made for him with his PCP on 02/28, patient will be instructed to follow up with PCP in one week after discharge and he agrees. 02/23/2021 Patient awake alert, no worsening symptoms or pain. He had colonoscopy earlier which shows basically no evidence of ulceration, mass or inflammation event and the area of wall thickening detected by CAT scan. Multiple biopsies were obtained. However looks like the patient reports bulky stool, oily, with flatulence and bloating which is highly suspicious for steatorrhea , malabsorption therefore patient was placed on low fat diet and to 72 hour of fat collection is ordered and pending results. Patient remains on normal saline lower quadrant at 100 mL per hour. Also his and CIWA protocol but no evidence of withdrawal. Objective - Vital Signs Vital signs: Vital Signs Temp 98.7 F 02/23/21 11:11 Pulse 59 L 02/23/21 11:11 Resp 18 02/23/21 11:11 BP 122/78 02/23/21 11:11 Pulse Ox 99 02/23/21 11:11 Intake & Output 02/22/21 02/23/21 02/23/21 18:59 06:59 18:59 Intake Total 200 Balance 200 Intake: IV 200 Other: Voiding Method Toilet Toilet # Voids 1 3 # Bowel Movements 3 - Exam GENERAL: The patient is alert and oriented x3, not in any acute distress. Well developed, well nourished. HEENT: Pupils are round and equally reacting to light. EOMI. No scleral icterus. No conjunctival pallor. Normocephalic, atraumatic. No pharyngeal erythema. No thyromegaly. CARDIOVASCULAR: S1 and S2 present. No murmurs, rubs, or gallops. PULMONARY: Chest is clear to auscultation, no wheezing or crackles. -ABDOMEN: Soft, mild LLQ tenderness, nondistended, normoactive bowel sounds. No palpable organomegaly. MUSCULOSKELETAL: No joint swelling or deformity. EXTREMITIES: No cyanosis, clubbing, or pedal edema. NEUROLOGICAL: Gross neurological examination did not reveal any focal deficits. SKIN: No rashes. no petechiae. - Labs CBC & Chem 7: 02/20/21 08:55 02/23/21 06:08 Labs: Abnormal Lab Results - Last 24 Hours (Table) 02/23/21 Range/Units 06:08 Potassium 3.4 L (3.5-5.5) mmol/L BUN 2.3 L (9.0-27.0) mg/dL BUN/Creatinine Ratio 3.74 L (12.00-20.00) Ratio Calcium 7.9 L (8.7-10.3) mg/dL Microbiology - Last 24 Hours (Table) 02/20/21 11:26 Stool Culture - Preliminary Stool Assessment and Plan Assessment: Acute on Chronic diarrhea suspicious for steatorrhea and fat Malabsorption Left descending and sigmoid colitis on CAT scan of the abdomen, however colonoscopy shows no significant inflammation Hypokalemia, Improved Dehydration secondary to above, improved nicotine dependence Alcohol abuse at-risk of local withdrawal Family history of pancolitis Plan: This is a pleasant 6 years old male who presents with hypokalemia and acute on chronic diarrhea Replacement potassium per protocol. Continue with IV hydration Follow-up colon Biopsy. Follow-up stool culture Collected 72 hours at to rule out Malabsorption No GI covered to the hospital Continue with CIWA protocol and nicotine patch Labs and medication were reviewed.. Continue same treatment. Continue with symptomatic treatment. Resume home medication. Monitor lytes and vitals. DVT and GI prophylaxis. Further recommendations depends on the clinical course of the patient DVT prophylaxis: Subcutaneous heparin GI Prophylaxis: Pepcid Prognosis is guarded Plan discussed with patient and at bedside and they agree
[2021-02-24] MEDS: SODIUM CHLORIDE 0.9% 1,000 ML IV SCH ×3 (03:56→21:55)
[2021-02-24] MEDS: THIAMINE 100 MG TAB PO SCH ×2 (07:11→16:44)
[2021-02-24] MEDS: LEVOTHYROXINE 112 MCG TAB PO SCH (07:11)
[2021-02-24] MEDS: SYMBICORT 160-4.5 MCG INHALER INHALATION SCH ×2 (07:45→21:01)
[2021-02-24] MEDS: CYANOCOBALAMIN 500 MCG TAB PO SCH (08:47)
[2021-02-24] MEDS: LORATADINE 10 MG TAB PO SCH (08:47)
[2021-02-24] MEDS: MONTELUKAST 10 MG TAB PO SCH (08:47)
[2021-02-24] MEDS: CHOLESTYRAMINE (WITH SUGAR) 4 GM PACKET PO SCH (09:15)
[2021-02-24] MEDS: DIPHENOX-ATROP 2.5-0.025 MG 1 EACH TAB PO SCH (09:15)
[2021-02-24] MEDS: NICOTINE 21MG/24HR PATCH TRANSDERM SCH (09:15)
[2021-02-24 10:54] LABS: African American GFR (CKD) 120.6 (60.0-200.0); Anion Gap 8.4 mmol/L (4.00-12.00); BUN/Creat Ratio 6.21 Ratio (12.00-20.00); Blood Urea Nitrogen 4.2 mg/dL (9.0-27.0); Calcium 8.1 mg/dL (8.7-10.3); Carbon Dioxide 26.9 mmol/L (21.6-31.8); Non-African American GFR(CKD) 104.1 (60.0-200.0); Potassium 3.8 mmol/L (3.5-5.5)
--- NOTE | 2021-02-24 20:30 | P.PN ---
Subjective This is a pleasant 60 years old male with past medical history of chronic diarrhea. [place] for abnormal lab with hypokalemia. [facility] to the [place] [facility] for testing for his thyroid blood test for a routine visit, he was found to have low potassium and call to come to emergency room. Patient has been complaining of from diarrhea for 2 years and is really bad slowly getting worse over the last year, currently he is going to 16-18 times per day, associated with lower abdominal pain about 6-8/10 in severity. Nonradiating. It felt like cramps. No nausea vomiting. He has been evaluated by GI service over the last 2 years. He had a colonoscopy about 2 years ago. He denies chest pain or dyspnea. No headache or weakness. At baseline he works using a cane. He has family history of pancolitis and his daughter who is: Has to be taken out per patient. He is a smoker about 1 pack per day, patient is counseled and does not want to quit agrees to nicotine patch while in house. He drinks about 6-[address] of alcohol every day. No illicit drugs. Patient is hemodynamically stable. Afebrile. Labs showing unremarkable CBC with normal WBC at 6.3. Sodium 135, potassium 2.6. Creatinine normal at 0.6. Liver enzymes not elevated. Bilirubin is normal. Amylase and lipase are normal. Urine analysis is not suspicious of infection. KUB nonspecific bowel gas pattern. Scoliosis and degenerative disc disease Emergency room received KCl 40 mEq by mouth 1 and normal saline with 30 mL/h GI team were consulted from emergency room. 02/21/2021 Patient still with diarrhea, he had 4-5 loose bowel movement last night. He has mild pain and tenderness in the left lower quadrant. He tolerates diet. No vomiting. No right upper quadrant pain or tenderness. CT of the abdomen showing possible descending and sigmoid colitis and liver ultrasound showing a contracted gallbladder suspicious for chronic c holecystitis. Vital signs stable, afebrile. Potassium 2.9, magnesium normal. TSH is normal C. diff is negative, Giardia antigen is negative. C-reactive protein is negative less than 0.5. Stool culture and calprotecting is pending. Stool elastase is is pending Patient still on IV hydration and CIPR protocol for his alcohol abuse and thiamine. Also he is on cholestyramine and [place] was added today. GI team were consulted from emergency room but there is no GI service at this facility this week or next week. Surgery team were consulted. Physical therapy recommended home upon discharge 02/22/2021 Patient is going for colonoscopy today and he is undergoing bowel preparation now. Significant abdominal pain today. Some gentle hydration. Remains on CIWA protocol. Potassium is back to normal at 3.8. No antibiotics so far. Protonix calcitonin is normal at 0.04. No fever or leukocytosis. An appointment made for him with his PCP on 02/28, patient will be instructed to follow up with PCP in one week after discharge and he agrees. 02/23/2021 Patient awake alert, no worsening symptoms or pain. He had colonoscopy earlier which shows basically no evidence of ulceration, mass or inflammation event and the area of wall thickening detected by CAT scan. Multiple biopsies were obtained. However looks like the patient reports bulky stool, oily, with flatulence and bloating which is highly suspicious for steatorrhea , malabsorption therefore patient was placed on low fat diet and to 72 hour of fat collection is ordered and pending results. Patient remains on normal saline lower quadrant at 100 mL per hour. Also his and CIWA protocol but no evidence of withdrawal. 02/24/2021 Patient with chronic diarrhea, gradually getting worse and causing problem of hypokalemia. Patient mainly has steatorrhea and 72 hour fat collection supple is been ordered. Patient has to be a low-fat diet which is placed. Also we dissected his cholestyramine and Lomotil. Test since he had the colonoscopy he did not have bowel movement basically due to these medication although he is eating well. His left lower quadrant abdominal pain and tenderness looks improved and abdomen is soft and benign. There is no abdominal distention and patient is moving freely with no difficulty. Hemodynamically stable. Potassium 3.8 and magnesium 2.0. We'll culture came back negative. He underwent colonoscopy and there was no inflammation in the left side of the colon On as suspected on the CAT scan of the abdomen. Remains on normal saline and the valve was lowered 75 ml/h today. he is not undergoing alcohol withdrawal Of note I think the patient needs to stay in the hospital because the stool samp le for 72 hour fat collection needs to be kept refrigerated as per staff, so as to get This test done. Objective - Vital Signs Vital signs: Vital Signs Temp 98.0 F 02/24/21 11:33 Pulse 61 02/24/21 11:33 Resp 16 02/24/21 11:33 BP 149/87 02/24/21 11:33 Pulse Ox 97 02/24/21 11:33 Intake & Output 02/23/21 02/24/21 02/24/21 18:59 06:59 18:59 Intake Total 1560 Balance 1560 Intake: Intake, IV Titration 1560 Amount Sodium Chloride 0.9% 1, 1560 000 ml @ 100 mls/hr IV . Q10H [facility] Rx#:[id number] Other: Voiding Method Toilet Toilet Toilet # Voids 2 2 - Exam GENERAL: The patient is alert and oriented x3, not in any acute distress. Well developed, well nourished. HEENT: Pupils are round and equally reacting to light. EOMI. No scleral icterus. No conjunctival pallor. Normocephalic, atraumatic. No pharyngeal erythema. No thyromegaly. CARDIOVASCULAR: S1 and S2 present. No murmurs, rubs, or gallops. PULMONARY: Chest is clear to auscultation, no wheezing or crackles. -ABDOMEN: Soft, mild LLQ tenderness, nondistended, normoactive bowel sounds. No palpable organomegaly. MUSCULOSKELETAL: No joint swelling or deformity. EXTREMITIES: No cyanosis, clubbing, or pedal edema. NEUROLOGICAL: Gross neurological examination did not reveal any focal deficits. SKIN: No rashes. no petechiae. - Labs CBC & Chem 7: 02/20/21 08:55 02/24/21 05:53 Labs: Abnormal Lab Results - Last 24 Hours (Table) 02/24/21 Range/Units 05:53 BUN 4.2 L (9.0-27.0) mg/dL BUN/Creatinine Ratio 6.21 L (12.00-20.00) Ratio Calcium 8.1 L (8.7-10.3) mg/dL Microbiology - Last 24 Hours (Table) 02/20/21 11:26 Stool Culture - Final Stool Assessment and Plan Assessment: Acute on Chronic diarrhea suspicious for steatorrhea and fat Malabsorption Left descending and sigmoid colitis on CAT scan of the abdomen, however colonoscopy shows no significant inflammation Hypokalemia, Improved Dehydration secondary to above, improved nicotine dependence Alcohol abuse at-risk of local withdrawal Family history of pancolitis Plan: This is a pleasant 6 years old male who presents with hypokalemia and acute on chronic diarrhea Replacement potassium per protocol. Continue with IV hydration Follow-up colon Biopsy. Collected 72 hours at to rule out Malabsorption. Discontinue cholestyramine and Lomotil to allow stool collection sample. No GI covered to the hospital Continue with CIWA protocol and nicotine patch Labs and medication were reviewed.. Continue same treatment. Continue with symptomatic treatment. Resume home medication. Monitor lytes and vitals. DVT and GI prophylaxis. Further recommendations depends on the clinical course of the patient DVT prophylaxis: Subcutaneous heparin GI Prophylaxis: Pepcid Prognosis is guarded Plan discussed with patient and at bedside and they agree
[2021-02-25] MEDS: LEVOTHYROXINE 112 MCG TAB PO SCH (06:15)
[2021-02-25] MEDS: SYMBICORT 160-4.5 MCG INHALER INHALATION SCH (07:34)
[2021-02-25] MEDS: NICOTINE 21MG/24HR PATCH TRANSDERM SCH (08:34)
[2021-02-25] MEDS: LORATADINE 10 MG TAB PO SCH (08:37)
[2021-02-25] MEDS: THIAMINE 100 MG TAB PO SCH (08:37)
[2021-02-25] MEDS: CYANOCOBALAMIN 500 MCG TAB PO SCH (08:37)
[2021-02-25] MEDS: MONTELUKAST 10 MG TAB PO SCH (08:37)
[2021-02-25] MEDS: SODIUM CHLORIDE 0.9% 1,000 ML IV SCH (08:39)
[2021-02-25 11:59] VITALS: BP 123/76; PULSE 77; RESP 17; TEMP 98.4
--- NOTE | 2021-02-26 09:25 | P.DS ---
Providers Date of admission: 02/20/21 11:12 Expected date of discharge: 02/25/21 Attending physician: Monty Sethi MD Consults: 02/20/21 19:57 Consult Physician Urgent Consulting Provider: Safia Eden Consult Reason/Comments: Abdominal pain Do you want consulting provider notified?: Yes, Notify in am Primary care physician: [facility] Hospital Course: Final diagnosis Acute on Chronic diarrhea suspicious for steatorrhea and fat Malabsorption Left descending and sigmoid colitis on CAT scan of the abdomen, however colonoscopy shows no significant inflammation Hypokalemia, Improved Dehydration secondary to above, improved nicotine dependence Alcohol abuse at-risk of alcohol withdrawal Family history of pancolitis GI prophylaxis DVT prophylaxis Full code Discharge disposition Patient is being discharged in a stable condition with guarded prognosis to home. Patient will follow-up with the [facility] in the outpatient setting upon discharge. Patient also encourage and instructed to follow-up with general surgery Dr. Eden for test results along with GI for further testing. Patient encouraged to continue with a low fiber diet until follow-up. Total time taken is greater than 35 minutes. Hospital course This is a 60-year-old male who was recently sent here from his office for abnormal labs with hypokalemia and follows at the [facility]. Patient states he has been having diarrhea daily for the last 2 years and recently underwent colonoscopy with biopsies with Dr. Eden and instructed to continue on low fiber diet. Patient continues with abdominal discomfort most likely related to gas he states and had an episode of bowel movement that was formed and consisting of small pellets. Patient with possible steatorrhea and needs close outpatient follow-up with GI and further testing. Encouraged low-fat diet and will continue with Questran and Imodium as needed. Patient admits to drinking daily and was maintained on CIWA protocol although no active withdrawals noted. Patient will need outpatient 72 hour fecal fat collection testing in the outpatient setting with GI monitoring. Patient instructed to follow-up with primary care provider to initiate referrals. Patient will follow-up with Dr. Wesley upon discharge. Currently no reports of chest pain, shortness of breath, or palpitations. Patient is afebrile. No reports of nausea or vomiting and patient is tolerating diet. Patient will be discharged home today. GENERAL: The patient is alert and oriented x3, not in any acute distress. Well developed, well nourished. HEENT: Pupils are round and equally reacting to light. EOMI. No scleral icterus. No conjunctival pallor. Normocephalic, atraumatic. No pharyngeal erythema. No thyromegaly. CARDIOVASCULAR: S1 and S2 present. No murmurs, rubs, or gallops. PULMONARY: Chest is clear to auscultation, no wheezing or crackles. ABDOMEN: Soft, mild LLQ tenderness, nondistended, normoactive bowel sounds. No palpable organomegaly. MUSCULOSKELETAL: No joint swelling or deformity. EXTREMITIES: No cyanosis, clubbing, or pedal edema. NEUROLOGICAL: Gross neurological examination did not reveal any focal deficits. SKIN: No rashes. no petechiae. Please refer to medication reconciliation sheet for a list of medications. Patient Condition at Discharge: Stable Plan - Discharge Summary Discharge Rx Participant: No New Discharge Prescriptions: New Nicotine 21Mg/24Hr Patch [Habitrol] 1 patch TRANSDERM DAILY 20 Days #20 patch Thiamine [Vitamin B-1] 100 mg PO BID-W/MEALS 30 Days #60 tab Cholestyramine (with Sugar) [Questran] 4 gm PO TID #60 packet Continue Cetirizine HCl [Zyrtec] 10 mg PO DAILY Cyanocobalamin [Vitamin B-12] 500 mcg PO DAILY Toradol 30mg/Ml 30 mg IM DAILY PRN PRN Reason: Pain Albuterol Sulfate [Proair Hfa] 1 - 2 puff INHALATION RT-Q6H PRN PRN Reason: Shortness Of Breath Budesonide-Formot 160-4.5 Mcg [Symbicort 160-4.5 Mcg Inhaler] 2 puff INHALATION RT-BID Cyclobenzaprine [Flexeril] 10 mg PO BID PRN PRN Reason: Muscle Spasm Folic Acid 1 mg PO DAILY Montelukast [Singulair] 10 mg PO DAILY Potassium Gluconate [Potassium Gluconate ER] 99 mg PO DAILY Levothyroxine Sodium [Synthroid] 112 mcg PO DAILY Loperamide HCl [Imodium A-D] 2 mg PO QID PRN #30 tab PRN Reason: Diarrhea HYDROcodone/APAP 5-325MG [Section 5-325] 1 tab PO HS PRN #10 tab PRN Reason: Severe Pain Discontinued Naproxen 375 mg PO BID Discharge Medication List Albuterol Sulfate [Proair Hfa] 1 - 2 puff INHALATION RT-Q6H PRN 10/20/21 [History] Budesonide-Formot 160-4.5 Mcg [Symbicort 160-4.5 Mcg Inhaler] 2 puff INHALATION RT-BID 02/20/21 [History] Cetirizine HCl [Zyrtec] 10 mg PO DAILY 02/20/21 [History] Cyanocobalamin [Vitamin B-12] 500 mcg PO DAILY 02/20/21 [History] Cyclobenzaprine [Flexeril] 10 mg PO BID PRN 02/20/21 [History] Folic Acid 1 mg PO DAILY 02/20/21 [History] Montelukast [Singulair] 10 mg PO DAILY 02/20/21 [History] Potassium Gluconate [Potassium Gluconate ER] 99 mg PO DAILY 02/20/21 [History] Toradol 30mg/Ml 30 mg IM DAILY PRN 02/20/21 [History] Levothyroxine Sodium [Synthroid] 112 mcg PO DAILY 02/21/21 [History] Cholestyramine (with Sugar) [Questran] 4 gm PO TID #60 packet 02/25/21 [Rx] HYDROcodone/APAP 5-325MG [Section 5-325] 1 tab PO HS PRN #10 tab 02/25/21 [Rx] Loperamide HCl [Imodium A-D] 2 mg PO QID PRN #30 tab 02/25/21 [Rx] Nicotine 21Mg/24Hr Patch [Habitrol] 1 patch TRANSDERM DAILY 20 Days #20 patch 02/25/21 [Rx] Thiamine [Vitamin B-1] 100 mg PO BID-W/MEALS 30 Days #60 tab 02/25/21 [Rx] Follow up Appointment(s)/Referral(s): Safia Eden DO [Doctor of Osteopathic Medicine] - 03/07/21 9:15 am () [facility] [Primary Care Provider] - 02/28/21 9:00 am Amy Wesley MD [STAFF PHYSICIAN] - 1 Week (Please call office for follow up appointment.) Patient Instructions/Handouts: How to Stop Smoking (DC), Low Fiber Diet (GEN), Hypokalemia (DC), Chronic Diarrhea (DC) Activity/Diet/Wound Care/Special Instructions: Activity Limited until follow-up Follow-up with primary care provider on discharge Follow-up with GI in the outpatient setting Continue low fiber diet Follow-up with surgery about biopsy results from colonoscopy Continue with Imodium and Questran and hold Questran is having constipation, imodium is as needed for loose stools Discharge Disposition: HOME SELF-CARE
== END 2021-02-25 16:42 | disposition home or self-care (01) | DRG 392 ==
LOC: EC 08:14 → 5NMEDONC 11:12
PROVIDERS: ADMIT Internal Medicine; ATTEND Internal Medicine
PROC: HZ2ZZZZ Detoxification Services for Substance Abuse Treatment (ICD-10-PCS; 2021-02-20)
PROC: 0DBE8ZX Excision of Large Intestine, Via Natural or Artificial Opening Endoscopic, Diagnostic (ICD-10-PCS; 2021-02-22)
PROC: 0DBB8ZX Excision of Ileum, Via Natural or Artificial Opening Endoscopic, Diagnostic (ICD-10-PCS; principal; 2021-02-22 07:30)
DX: K52.9 Noninfective gastroenteritis and colitis, unspecified (principal); K90.49 Malabsorption due to intolerance, not elsewhere classified; E87.6 Hypokalemia; J44.9 Chronic obstructive pulmonary disease, unspecified; E86.0 Dehydration; F10.10 Alcohol abuse, uncomplicated; I45.10 Unspecified right bundle-branch block; M41.9 Scoliosis, unspecified; M51.27 Other intervertebral disc displacement, lumbosacral region; F17.210 Nicotine dependence, cigarettes, uncomplicated; Z20.822 Contact with and (suspected) exposure to COVID-19; Z79.51 Long term (current) use of inhaled steroids; Z79.899 Other long term (current) drug therapy; Z90.49 Acquired absence of other specified parts of digestive tract; Z79.890 Hormone replacement therapy; Z87.19 Personal history of other diseases of the digestive system
CPT/HCPCS: 36415; 45380; 74018; 74177; 76705; 80048; 80053; 81003; 82150; 82656; 83690; 83735; 83993; 84132; 84145; 84443; 85025; 85652; 86140; 87045; 87046; 87324; 87329; 87635; 88305; 93005; 94640; 96360; 96361; 99285

== ENCOUNTER 2022-04-01 09:04 | Emergency (ER) | payer OTHER ==
[2022-04-01] MEDS ORDERED: IBUPROFEN 600 MG TAB PO STA (09:21)
[2022-04-01] MEDS ORDERED: ACETAMINOPHEN TAB 500 MG TAB PO STA (09:21)
[2022-04-01] MEDS: SODIUM CHLORIDE 0.9% 500 ML 500 ML IV SCH ×3 (09:31→10:32)
[2022-04-01 09:43] LABS: Basophils # (A) 0.1 k/uL (0-0.2); Basophils % (A) 2 %; Eosinophils % (A) 1 %; HGB 16.4 gm/dL (13.0-17.5); Lymphocytes # (A) 0.9 k/uL (1.0-4.8); Lymphocytes % (A) 14 %; MCH 37.4 pg (25.0-35.0); MCHC 37.3 g/dL (31.0-37.0); MCV 100.2 fL (80.0-100.0); Mean Platelet Volume 7.3; Monocytes # (A) 0.5 k/uL (0-1.0); Monocytes % (A) 9 %; Neutrophils # (A) 4.5 k/uL (1.3-7.7); Neutrophils % (A) 72 %; Platelet Count 205 k/uL (150-450); RBC 4.39 m/uL (4.30-5.90); RDW 12.6 % (11.5-15.5); WBC 6.3 k/uL (3.8-10.6)
[2022-04-01 09:52] LABS: ALT 32 U/L (4-49); AST 58 U/L (17-59); African American GFR (CKD) >90 (>60 ml/min/1.73 sqM); Albumin 4.4 g/dL (3.5-5.0); Alkaline Phosphatase 82 U/L (38-126); Anion Gap 8 mmol/L; Blood Urea Nitrogen 13 mg/dL (9-20); Calcium 8.8 mg/dL (8.4-10.2); Carbon Dioxide 26 mmol/L (22-30); Chloride 100 mmol/L (98-107); Glucose 96 mg/dL (74-99); Non-African American GFR(CKD) 86 (>60 ml/min/1.73 sqM); Potassium 3.9 mmol/L (3.5-5.1); Sodium 134 mmol/L (137-145); Total Bilirubin 0.6 mg/dL (0.2-1.3)
[2022-04-01 09:56] LABS: INR 0.9 (<1.2); Partial Thromboplastin Time 24.6 sec (22.0-30.0); Prothrombin Time 9.7 sec (9.0-12.0)
--- NOTE | 2022-04-01 10:49 | XR ---
EXAMINATION TYPE: XR chest 2V DATE OF EXAM: 04/01/2022 COMPARISON: NONE HISTORY: Elevated d-dimer shortness of breath. TECHNIQUE: Frontal and lateral views of the chest are obtained. FINDINGS: There is no suspicious focal air space opacity, pleural effusion, or pneumothorax seen. T he cardiac silhouette size is within normal limits. The osseous structures are intact. Overlying EK G leads are present. IMPRESSION: No acute cardiopulmonary process.
--- NOTE | 2022-04-01 10:51 | ED ---
General Adult HPI - General Chief complaint: Chest Pain Stated complaint: chest pain Time Seen by Provider: 04/01/22 09:15 Source: patient, RN notes reviewed, old records reviewed Mode of arrival: EMS Limitations: no limitations - History of Present Illness Initial comments: This is a 61-year-old male presents emergency Department complaining of cough a nd congestion headache chills and states he has chest pain with the cough. Patient states is not coughing is no chest pain. Patient states he was coughing all night long and that caused him to be up all night because of the pain it was eliciting. Patient denies any significant shortness of breath. Patient is a smoker. Patient states he is a daily drinker. Patient denies any palpitations. Patient denies any lightheadedness or dizziness. Patient denies numbness weakness. Patient denies abdominal pain patient denies any vomiting or diarrhea. Patient states lying in bed right now he has no chest pain unless he coughs or takes a deep breath. - Related Data Home Medications Medication Instructions Recorded Confirmed Budesonide-Formot 160-4.5 Mcg 2 puff INHALATION RT-BID PRN 02/20/21 04/01/22 [Symbicort 160-4.5 Mcg Inhaler] Cetirizine HCl [Zyrtec] 10 mg PO DAILY PRN 02/20/21 04/01/22 Levothyroxine Sodium [Synthroid] 112 mcg PO DAILY 02/21/21 04/01/22 Acetaminophen Tab [Tylenol Tab] 500 - 1,000 mg PO Q4H PRN 04/01/22 04/01/22 Dm/Acetaminophen/Doxylamine [Vicks 30 ml PO Q4H PRN 04/01/22 04/01/22 Nyquil Cold-Flu Liquid] Previous Rx's Medication Instructions Recorded Oseltamivir [Tamiflu] 75 mg PO Q12HR #10 cap 04/01/22 Allergies Allergy/AdvReac Type Severity Reaction Status Date / Time No Known Allergies Allergy Verified 04/01/22 10:39 Review of Systems ROS Statement: Those systems with pertinent positive or pertinent negative responses have been documented in the HPI. ROS Other: All systems not noted in ROS Statement are negative. Past Medical History Past Medical History: COPD, GI Bleed, Musculoskeletal Disorder, Thyroid Disorder Additional Past Medical History / Comment(s): L1-S1 herniated/degenerated History of Any Multi-Drug Resistant Organisms: None Reported Past Surgical History: Appendectomy, Hernia Repair Past Anesthesia/Blood Transfusion Reactions: No Reported Reaction Past Psychological History: No Psychological Hx Reported Smoking Status: Current every day smoker Past Alcohol Use History: Daily Past Drug Use History: None Reported - Past Family History Father Family Medical History: Cancer General Exam - General Exam Comments Initial Comments: GENERAL: Patient is well-developed and well-nourished. Patient is nontoxic and well- hydrated and is in mild distress. I took the patient's temperature and it was 102.9 orally ENT: Neck is soft and supple. No significant lymphadenopathy is noted. Oropharynx is clear. Moist mucous membranes. Neck has full range of motion without eliciting any pain. EYES: The sclera were anicteric and conjunctiva were pink and moist. Extraocular movements were intact and pupils were equal round and reactive to light. Eyelids were unremarkable. PULMONARY: Unlabored respirations. Good breath sounds bilaterally. No audible rales rhonchi or wheezing was noted. CARDIOVASCULAR: There is a regular rate and rhythm without any murmurs gallops or rubs. ABDOMEN: Soft and nontender with normal bowel sounds. SKIN: Skin is clear with no lesions or rashes and otherwise unremarkable. NEUROLOGIC: Patient is alert and oriented x3. Cranial nerves II through XII are grossly intact. Motor and sensory are also intact. Normal speech, volume and content. Symmetrical smile. MUSCULOSKELETAL: Normal extremities with adequate strength and full range of motion. No lower extremity swelling or edema. No calf tenderness. LYMPHATICS: No significant lymphadenopathy is noted PSYCHIATRIC: Normal psychiatric evaluation. Limitations: no limitations Course Vital Signs 04/01/22 04/01/22 04/01/22 09:05 10:00 11:00 Temperature 100.3 F H 102.1 F H 99.9 F H Pulse Rate 113 H 88 76 Respiratory 20 17 22 Rate Blood Pressure 128/85 126/73 107/64 O2 Sat by Pulse 94 L 96 96 Oximetry Medical Decision Making - Medical Decision Making I interpreted the EKG it shows sinus tachycardia at 103 bpm AL interval is on a 31 QRSs 84 QT interval 312 QTC is 372. EKG shows some slight ST segment depression in precordial leads V3 through V6 no ST segment elevation Chest x-ray was interpreted by me. Chest x-ray showed no acute abnormality. Computed tomography scan of the chest was interpreted by me. Chest CT showed no pulmonary embolism. I went back in and reevaluated the patient he stated he felt much better wanted to go home and take care of his influenza at home. - Lab Data Result diagrams: 04/01/22 09:34 04/01/22 09:34 Lab Results 04/01/22 04/01/22 04/01/22 Range/Units 09:34 09:34 09:34 WBC 6.3 (3.8-10.6) k/uL RBC 4.39 (4.30-5.90) m/uL Hgb 16.4 (13.0-17.5) gm/dL Hct 44.0 (39.0-53.0) % MCV 100.2 H (80.0-100.0) fL MCH 37.4 H (25.0-35.0) pg MCHC 37.3 H (31.0-37.0) g/dL RDW 12.6 (11.5-15.5) % Plt Count 205 (150-450) k/uL MPV 7.3 Neutrophils % 72 % Lymphocytes % 14 % Monocytes % 9 % Eosinophils % 1 % Basophils % 2 % Neutrophils # 4.5 (1.3-7.7) k/uL Lymphocytes # 0.9 L (1.0-4.8) k/uL Monocytes # 0.5 (0-1.0) k/uL Eosinophils # 0.0 (0-0.7) k/uL Basophils # 0.1 (0-0.2) k/uL PT 9.7 (9.0-12.0) sec INR 0.9 (<1.2) APTT 24.6 (22.0-30.0) sec D-Dimer 0.67 H (<0.60) mg/L FEU Sodium 134 L (137-145) mmol/L Potassium 3.9 (3.5-5.1) mmol/L Chloride 100 (98-107) mmol/L Carbon Dioxide 26 (22-30) mmol/L Anion Gap 8 mmol/L BUN 13 (9-20) mg/dL Creatinine 0.96 (0.66-1.25) mg/dL Est GFR (CKD-EPI)AfAm >90 (>60 ml/min/1.73 sqM) Est GFR (CKD-EPI)NonAf 86 (>60 ml/min/1.73 sqM) Glucose 96 (74-99) mg/dL Plasma Lactic Acid Beau (0.7-2.0) mmol/L Calcium 8.8 (8.4-10.2) mg/dL Total Bilirubin 0.6 (0.2-1.3) mg/dL AST 58 (17-59) U/L ALT 32 (4-49) U/L Alkaline Phosphatase 82 (38-126) U/L Troponin I (0.000-0.034) ng/mL Total Protein 7.0 (6.3-8.2) g/dL Albumin 4.4 (3.5-5.0) g/dL Coronavirus (PCR) (Not Detectd) Influenza Type A RNA (Not Detectd) Influenza Type B (PCR) (Not Detectd) 04/01/22 04/01/22 04/01/22 Range/Units 09:34 09:34 09:41 WBC (3.8-10.6) k/uL RBC (4.30-5.90) m/uL Hgb (13.0-17.5) gm/dL Hct (39.0-53.0) % MCV (80.0-100.0) fL MCH (25.0-35.0) pg MCHC (31.0-37.0) g/dL RDW (11.5-15.5) % Plt Count (150-450) k/uL MPV Neutrophils % % Lymphocytes % % Monocytes % % Eosinophils % % Basophils % % Neutrophils # (1.3-7.7) k/uL Lymphocytes # (1.0-4.8) k/uL Monocytes # (0-1.0) k/uL Eosinophils # (0-0.7) k/uL Basophils # (0-0.2) k/uL PT (9.0-12.0) sec INR (<1.2) APTT (22.0-30.0) sec D-Dimer (<0.60) mg/L FEU Sodium (137-145) mmol/L Potassium (3.5-5.1) mmol/L Chloride (98-107) mmol/L Carbon Dioxide (22-30) mmol/L Anion Gap mmol/L BUN (9-20) mg/dL Creatinine (0.66-1.25) mg/dL Est GFR (CKD-EPI)AfAm (>60 ml/min/1.73 sqM) Est GFR (CKD-EPI)NonAf (>60 ml/min/1.73 sqM) Glucose (74-99) mg/dL Plasma Lactic Acid Beau 1.2 (0.7-2.0) mmol/L Calcium (8.4-10.2) mg/dL Total Bilirubin (0.2-1.3) mg/dL AST (17-59) U/L ALT (4-49) U/L Alkaline Phosphatase (38-126) U/L Troponin I <0.012 (0.000-0.034) ng/mL Total Protein (6.3-8.2) g/dL Albumin (3.5-5.0) g/dL Coronavirus (PCR) (Not Detectd) Influenza Type A RNA Detected H (Not Detectd) Influenza Type B (PCR) Not Detected (Not Detectd) 04/01/22 04/01/22 Range/Units 09:41 12:18 WBC (3.8-10.6) k/uL RBC (4.30-5.90) m/uL Hgb (13.0-17.5) gm/dL Hct (39.0-53.0) % MCV (80.0-100.0) fL MCH (25.0-35.0) pg MCHC (31.0-37.0) g/dL RDW (11.5-15.5) % Plt Count (150-450) k/uL MPV Neutrophils % % Lymphocytes % % Monocytes % % Eosinophils % % Basophils % % Neutrophils # (1.3-7.7) k/uL Lymphocytes # (1.0-4.8) k/uL Monocytes # (0-1.0) k/uL Eosinophils # (0-0.7) k/uL Basophils # (0-0.2) k/uL PT (9.0-12.0) sec INR (<1.2) APTT (22.0-30.0) sec D-Dimer (<0.60) mg/L FEU Sodium (137-145) mmol/L Potassium (3.5-5.1) mmol/L Chloride (98-107) mmol/L Carbon Dioxide (22-30) mmol/L Anion Gap mmol/L BUN (9-20) mg/dL Creatinine (0.66-1.25) mg/dL Est GFR (CKD-EPI)AfAm (>60 ml/min/1.73 sqM) Est GFR (CKD-EPI)NonAf (>60 ml/min/1.73 sqM) Glucose (74-99) mg/dL Plasma Lactic Acid Beau (0.7-2.0) mmol/L Calcium (8.4-10.2) mg/dL Total Bilirubin (0.2-1.3) mg/dL AST (17-59) U/L ALT (4-49) U/L Alkaline Phosphatase (38-126) U/L Troponin I <0.012 (0.000-0.034) ng/mL Total Protein (6.3-8.2) g/dL Albumin (3.5-5.0) g/dL Coronavirus (PCR) Not Detected (Not Detectd) Influenza Type A RNA (Not Detectd) Influenza Type B (PCR) (Not Detectd) Disposition Clinical Impression: Influenza Disposition: HOME SELF-CARE Condition: Good Instructions (If sedation given, give patient instructions): Influenza (ED) Prescriptions: Oseltamivir [Tamiflu] 75 mg PO Q12HR #10 cap Is patient prescribed a controlled substance at d/c from ED?: No Referrals: [facility],Clinic [Primary Care Provider] - 1-2 days Time of Disposition: 13:19
--- NOTE | 2022-04-01 11:02 | CT ---
EXAMINATION TYPE: CT chest angio for PE DATE OF EXAM: 04/01/2022 COMPARISON: Same day chest x-ray HISTORY: Cough, fever, flu A+. Elevated d-dimer. Shortness of breath. CT DLP: 332.7 mGycm. Automated Exposure Control for Dose Reduction was Utilized. CONTRAST: CTA scan of the thorax is performed with IV Contrast, patient injected with 100, wasted 34 ml mL of I sovue 370, pulmonary embolism protocol. MIP Images are created on CT scanner and reviewed. 3D recon structed images are created on an independent workstation and reviewed. FINDINGS: LUNGS: Focus of groundglass opacity involving the right middle lobe just above the diaphragm axial im age 89 measuring near 3.7 cm in length. Some respiratory motion artifact in the lung bases. There i s no pleural effusion or pneumothorax seen. The tracheobronchial tree is patent. MEDIASTINUM: There is satisfactory enhancement of the pulmonary artery and its branches, there is no CT evidence for pulmonary embolism. Satisfactory enhancement of the thoracic aorta without aneurysm o r dissection. There are prominent right hilar and subcarinal lymph nodes. No cardiomegaly or perica rdial effusion is seen. Coronary artery calcification is present. OTHER: No additional significant abnormality is seen. IMPRESSION: No CT evidence for acute pulmonary embolism. Groundglass opacity focus in the right middl e lobe could reflect developing pneumonic infiltrate.
[2022-04-01 11:05] VITALS: TEMP 99.9
[2022-04-01 13:56] VITALS: BP 111/72; PULSE 77; RESP 16
== END 2022-04-01 13:56 | disposition home or self-care (01) ==
LOC: EC 09:04
DX: J10.1 Influenza due to other identified influenza virus with other respiratory manifestations (principal); J44.9 Chronic obstructive pulmonary disease, unspecified; E07.9 Disorder of thyroid, unspecified; F17.200 Nicotine dependence, unspecified, uncomplicated; Z79.890 Hormone replacement therapy; Z79.899 Other long term (current) drug therapy; Z20.822 Contact with and (suspected) exposure to COVID-19
CPT/HCPCS: 36415; 93005; 85379; 80053; 83605; 84484; 85025; 85610; 85730; 87040; 87502; 87635; 71046; 71275; 99285; 96360; Q9967

== ENCOUNTER → 2023-07-09 | Outpatient (CLI) | payer OTHER ==
--- NOTE | 2023-07-09 11:38 | CT ---
Exam: CT Chest without contrast. Date: 07/09/2023. Comparison: 04/01/2022. History: COPD. Technique: CT examination of the chest was performed without contrast. Coronal and sagittal reformats were performed. CT dose lowering techniques were used, to include: automated exposure control, adjus tment for patient size, and/or use of iterative reconstruction. FINDINGS: Mediastinum and Sejal: There is no axillary, mediastinal or hilar lymphadenopathy. Pleural and Pericardial spaces: There are no pleural or pericardial effusions. Upper Abdomen: The visualized upper abdomen is unremarkable. Cardiovascular: There is mild vascular calcification the aortic arch without evidence of aneurysmal d ilation. Moderate patchy coronary artery calcifications are seen. Lung Parenchyma and Airways: Mild centrilobular emphysema. No focal area of consolidation. Bones: No fracture or aggressive osseous lesion. IMPRESSION: 1. Mild emphysema. 2. Coronary artery calcifications. 3. No acute findings.
== END | disposition home or self-care (01) ==
LOC: RADCTMAIN 10:40
PROVIDERS: ATTEND Family Medicine
DX: J44.9 Chronic obstructive pulmonary disease, unspecified (principal); J43.2 Centrilobular emphysema; I25.10 Atherosclerotic heart disease of native coronary artery without angina pectoris
CPT/HCPCS: 71250